=== PATIENT | male | born 1930 | race Caucasian/White ===

== ENCOUNTER 2017-09-16 10:28 | Observation (INO) | payer MEDICARE ==
[2017-09-16 10:58] LABS: ABS Basophils 0.1 10^3/ul (0-0.2); ABS Eosinophils 0.3 10^3/ul (0-0.6); ABS Lymphocytes 1.7 10^3/ul (1.0-4.8); ABS Monocytes 0.8 10^3/ul (0-0.8); ABS Neutrophils 5.1 10^3/ul (1.5-7.7); ABS Nucleated RBC 0 10^3/ul; Eosinophil % 3.6 % (0-6); Hematocrit 38 % (42-52); Hemoglobin 13.2 g/dl (14.0-18.0); Mean Corpuscular HGB Conc 35 g/dl (31-36); Mean Corpuscular Hemoglobin 33 pg (27-31); Mean Corpuscular Volume 95 fL (80-94); Mean Platelet Volume 6.2 um3 (7.4-10.4); Nucleated Red Blood Cells % 0; Platelet Count 348 10^3/ul (150-450); Red Blood Count 4.02 10^6/ul (4.00-5.40); Red Cell Distribution Width 13 % (10.5-15); White Blood Count 7.9 10^3/ul (3.5-10.8)
[2017-09-16 11:07] LABS: INR 0.89 (0.77-1.02)
--- NOTE | 2017-09-16 11:17 | ED ---
GI/ HPI - HPI Summary HPI Summary: This is scribe Filippo Oleary documenting for attending Hollie Emerson MD. 86 y/o male presents to ED accompanied by his daughter, Mariana, c/o black stool and generalized weakness for the past 3-5 days. In the ED room, the patient has a heart rate of 63 BPM, O2 saturation of 95% and blood pressure of 122/59. As per triage, "pt states hes had black stools for the past 5 days now. Has had hx of this". According to the patient, he has been experiencing these symptoms for the past 4-5 days, since September. He experiences black stools 3-4 times per day, however, he did note that he sees no blood in the toilet water. Additionally, he experiences a (non-acute) burning sensation that he has never experiences before outside of his arm and especially his forearm. Pt denies any CP, SOB, abdominal pain, headache or dizziness, however, he does have issues with loss of balance. The issues with loss of balance is chronic and not acute. He noted that he doesn't take Iron regularly. Instead he takes it "once in a blue lilly", such as eating chicken liver, however not in the last several days. Pt did had LUQ and LLQ pain intermittently that has resolved. He further noted that his 70% vision is not 100%. "There is a lot of interference" . PMHx of GI bleed x2 (2-3 years ago) and Cholecystectomy, no NH. 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 Current medications include daily small Aspirin (only "blood thinner"), Metoprolol, Levothyroxine and a whole array of Vitamin B tablets that he is trying on his own for his anemia. Patient was on Plavix previously. Last meal was approximately 0800. PCP in [place], [place], Dr Bennett. I, Dr. Hollie Emerson, personally performed the services described in this documentation as scribed in my presence and it is both accurate and complete. - History of Current Complaint Chief Complaint: EDGIBleed Time Seen by Provider: 09/16/17 10:37 Stated Complaint: BLOOD IN STOOL Hx Obtained From: Patient, Family/Track Worker - Daughter, Mariana. Onset/Duration: Started Days Ago - 4-5 days., Still Present Timing: Intermittent - Black stool 3-4 times per day., Lasting Days Severity: Moderate Current Severity: Moderate Pain Intensity: 3 Location of Pain: LUQ Pain Characteristics: Cramping, Other: - Black stool. Associated Signs and Symptoms: Positive: Black Tarry Stool, Diarrhea, Abdominal Pain. 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 Denies: Hx Pacemaker/ICD GI History: Reports: Hx Diverticulosis - diverticulitis and diverticular bleed, Hx Gastrointestinal Bleed, Hx Ulcer - duodenal History: Denies: Hx Dialysis, Hx Renal Disease Sensory History: Reports: Hx Contacts or Glasses, Hx Macular Degeneration, Hx Vision Problem - missing 1/3 of vision in right eye s/p CVA, s/p enucleation L, glaucoma Denies: Hx Deafness, Hx Hearing Aid, Hx Hearing Problem Opthamlomology History: Reports: Hx Contacts or Glasses, Hx Macular Degeneration , Hx Vision Problem - missing 1/3 of vision in right eye s/p CVA, enuculeation L ,glaucoma Neurological History: Reports: Hx CVA - affecting right eye Psychiatric History: Denies: Hx Panic Disorder - Surgical History Surgery Procedure, Year, and Place: CARDIAC STENT- 2003 NO CARDS- 1.5 T ONLY. GALLBLADDER. SX ON TOENAILS WHEN 19 YEARS OLD Hx Anesthesia Reactions: No Infectious Disease History: No Infectious Disease History: Denies: Traveled Outside the [place] in Last 30 Days - Family History Known Family History: Positive: Cardiac Disease - mother with NH, Other - Father with CVA Negative: Blood Disorder - Social History Lives: Alone Alcohol Use: None Hx Substance Use: No Substance Use Type: Reports: None Hx Tobacco Use: No Smoking Status (MU): Never Smoked Tobacco Review of Systems Negative: Fever Negative: Chest Pain Negative: Shortness Of Breath Positive: Abdominal Pain, Other - POSITIVE: Black stool. Positive: Other - POSITIVE: Non-acute burning sensation in arms/forearm. Skin: Negative Neurological: Other - NEGATIVE: Dizziness; POSITIVE: chronic loss of balance. Positive: Weakness - Generalized.. Negative: Headache Psychological: Normal All Other Systems Reviewed And Are Negative: Yes Physical Exam - Summary Physical Exam Summary: Appearance: Well-appearing, no pain distress, well-nourished Skin:Warm, color reflects adequate perfusion, dry Head:Normal Head/Face inspection, atraumatic Eyes: Conjunctiva clear right eye, enucleated left eye ENT:Normal inspection Neck:Supple, no nodes, no JVD Respiratory: Lungs clear, normal breath sounds, no respiratory distress Cardio: RRR, No murmur, pulses normal, brisk capillary refill Abdomen: Soft, nontender, no masses, no guarding, no rebound. Bowel sounds: Present. Rectal exam with Sugey, prostate was enlarged, no masses , external exam normal, soft green stool, guaiac negative. Musculoskeletal: Strength Intact/ROM intact, no calf tenderness, no edema. Psychological: Normal Neuro: Alert, muscle tone normal, no focal deficit Triage Information Reviewed: Yes Vital Signs On Initial Exam: Initial Vitals Temp Pulse Resp BP Pulse Ox 97.5 F 61 16 123/60 97 09/16/17 10:31 09/16/17 10:31 09/16/17 10:31 09/16/17 10:31 09/16/17 10:31 Vital Signs Reviewed: Yes Diagnostics - Vital Signs Vital Signs Temp Pulse Resp BP Pulse Ox 09/16/17 11:15 66 134/56 09/16/17 11:10 59 17 110/56 95 09/16/17 11:03 65 21 134/56 96 09/16/17 11:01 60 14 95 09/16/17 10:40 63 18 122/59 95 09/16/17 10:39 71 97 09/16/17 10:31 97.5 F 61 16 123/60 97 - Laboratory Lab Results: Lab Results 09/16/17 09/16/17 09/16/17 Range/Units 10:46 10:46 10:46 WBC 7.9 (3.5-10.8) 10^3/ul RBC 4.02 (4.00-5.40) 10^6/ul Hgb 13.2 L (14.0-18.0) g/dl Hct 38 L (42-52) % MCV 95 H (80-94) fL MCH 33 H (27-31) pg MCHC 35 (31-36) g/dl RDW 13 (10.5-15) % Plt Count 348 (150-450) 10^3/ul MPV 6.2 L (7.4-10.4) um3 Neut % (Auto) 64.4 (38-83) % Lymph % (Auto) 21.0 L (25-47) % [place] % (Auto) 10.2 H (0-7) % Eos % (Auto) 3.6 (0-6) % Baso % (Auto) 0.8 (0-2) % Absolute Neuts (auto) 5.1 (1.5-7.7) 10^3/ul Absolute Lymphs (auto) 1.7 (1.0-4.8) 10^3/ul Absolute Monos (auto) 0.8 (0-0.8) 10^3/ul Absolute Eos (auto) 0.3 (0-0.6) 10^3/ul Absolute Basos (auto) 0.1 (0-0.2) 10^3/ul Absolute Nucleated RBC 0 10^3/ul Nucleated RBC % 0 INR (Anticoag Therapy) 0.89 (0.77-1.02) APTT 30.2 (26.0-36.3) seconds Blood Type A Positive Antibody Screen Pending Result Diagrams: 09/17/17 06:43 09/17/17 06:43 Lab Statement: Any lab studies that have been ordered have been reviewed, and results considered in the medical decision making process. - Radiology CXR Radiology Interpretation Completed By: Radiologist - NO ACTIVE CARDIOPULMONARY DISEASE IS NOTED. ED physician reviewed this radiology report. - EKG 1042 Cardiac Rate: NL - 60 BPM EKG Rhythm: Sinus Rhythm EKG Interpretation: nl MANI CT. QTc 404. nl axis. no acute changes. EKG Comparison: No Significant Change - Since 10/18/2015. 1158 Cardiac Rate: Bradycardia - 56 BPM EKG Rhythm: Sinus Bradycardia EKG Interpretation: nl MANI CT, nl QTc, nl axis. Re-Evaluation - Re-Evaluation First Eval Re-Evaluation Time: 11:50 Change: Worse Comment: Nursing staff informed MD that patient is having CP. Second Eval Re-Evaluation Time: 11:56 Change: Worse Comment: Dr. Fink will evaluate patient. In the ED room, the patient noted that it was not chest pain, patient thinks it was more of a muscular cramp due to his position on the bed on the left side of chest under ribs reaching 2-3/10 in severity. Currently, the chest "cramp" has been relieved due to his position change. Denies any history of CP. In the ED room, the patient has a rate of 59 BPM, O2 saturation of 99% and blood pressure of 126/57. Another EKG will be done. Third Eval Re-Evaluation Time: 12:15 Change: Improved Comment: Ben Iraheta NP is present in room for evaluation. Daughter stated his left shoulder is cold and he is a minimizer in reporting symptoms. In the ED room, the patient as a rate of 59 BPM, O2 saturation of 98% and blood pressure of 126/63. GIGU Course/Dx - Course Course Of Treatment: A 86 y/o male with hx GI bleed x 2 in past due to diverticulitis and duodenal ulcer presents to ED accompanied by his daughter, Mariana, c/o black stool. Additionally c/o generalized weakness. In the ED, pt also had CP. Pt is on ASA, was on plavix when he had prior GI Bleeds. Stool is guaiac neg in the ED, and Hb is stable. Pt is not tachycardic, but is on metoprolol. Pt has had intermittent LUQ, LLQ pain. A CXR revealed no active cardiopulmonary disease is noted. A EKG revealed a NSR of 60 BPM, nl MANI CT. QTc 404. nl axis. no acute changes. A second EKG done for chest pain in the ED revealed sinus bradycardia of 56 BPM, nl MANI CT, nl QTc, nl axis. First troponin was negative. In ED course, the patient received IV fluids. Pt medications reviewed this visit. Patient care was discussed with MARIO Jackson [employer] consultant, and pt is from their practice who advises observation admission. Hospitalist, Dr. Fink, accepts patient for admission. Dr. Smith will have Dr. Jang evaluate patient in the hospital if needed. Patient will be admitted with a diagnosis of History of GI bleed, chest pain and generalized weakness. Patient is agreeable with this plan. - Diagnoses Differential Diagnoses - Male: ACS, Diverticulitis, Colitis, Diarrhea, Enterocolitis, Esophagitis/Gastritis, Gastritis, Gastroenteritis (Bacterial), Gastroenteritis (Viral), Ischemic Bowel, Peptic Ulcer Disease Provider Diagnoses: History of GI bleed, Generalized weakness, Chest pain, Dark stools - Physician Notifications Discussed Care Of Patient With: Sukhdev Smith Time Discussed With Above Provider: 11:27 Instructed by Provider To: Admit As Observation - advises patient admission for observation. Dr. Smith will have Dr. Jang evaluate patient in the hospital if needed. Dr. Fink, hospitalist accepts pt. Discharge - Sign-Out/Discharge Documenting (check all that apply): Patient Departure - admit - Discharge Plan Condition: Stable Disposition: ADMITTED TO [facility] - Billing Disposition and Condition Condition: STABLE Disposition: Admitted to [facility]
--- NOTE | 2017-09-16 11:30 | RAD ---
Indication: GI bleed. Single frontal view of the chest performed at 1113 hours was reviewed. Comparison is made with previous exam dated April 22, 2015. Hyperinflated lung tiwari are noted. Calcified nodule is noted in the right base which is unchanged from April 22, 2015 this is likely a calcified right rib end. IMPRESSION: NO ACTIVE CARDIOPULMONARY DISEASE IS NOTED.
[2017-09-16] MEDS ORDERED: NS 0.9% 1000 ML* 1,000 ML IV SCH ×2 (12:00→12:45)
[2017-09-16] MEDS ORDERED: Ondansetron INJ* 2 MG/ML VIAL IV PRN (12:44)
[2017-09-16] MEDS ORDERED: Acetaminophen TAB* 325 MG PO PRN (12:44)
[2017-09-16] MEDS ORDERED: Iohexol 300* (CONTRAST) 10 ML SDV IV ONE (14:16)
--- NOTE | 2017-09-16 14:54 | HP ---
CC: Dr. Bennett * HISTORY AND PHYSICAL: DATE OF ADMISSION: 09/16/17 PRIMARY CARE PROVIDER: Dr. Bennett. ATTENDING PHYSICIAN WHILE IN THE HOSPITAL: Dr. Lashonda Fink * (report dictated by Ben Iraheta NP). CHIEF COMPLAINT: 1. Diarrhea. 2. Weakness. 3. Tarry stool. HISTORY OF PRESENT ILLNESS: Mr. Lima is an 86-year-old male patient, who is coming into the ED today. In the last few days, he has had episodes, 3 to 4 times a day, of liquid diarrhea. He does note that he was taking Pepto-Bismol to help him. He actually took a dose yesterday and when he woke up this morning , he had diarrhea again and he noticed that his stool is dark. He says it did not look like tar, he just noted that the stool is black in appearance. He says he has just been feeling weak. The daughter does state that she normally goes over and checks his refrigerator for food at least once a week, she forgot to do it the last couple of weeks and says that he may have taken some spoiled food. There have been no recent sick contacts that they are aware of. He denies having any chest pain. In fact, he is admitting to having some right upper quadrant pain and right-sided abdominal cramping associated with his diarrhea. He has not noticed any nacho blood or maroon stools. He was concerned because he does have a significant history of diverticular bleeds in the past along with a duodenal ulcer, hypertension, glaucoma, hyperlipidemia, macular degeneration, hypothyroidism, history of stroke, and CAD. He came into the ED today. There was concern for a possible GI bleed. He was heme- negative. His H and H was stable and we were asked to evaluate for admission. PAST MEDICAL HISTORY: Significant for: 1. CAD. 2. Duodenal ulcer. 3. Diverticular bleed. 4. Hypertension. 5. Glaucoma. 6. Hyperlipidemia. 7. History of CVA. 8. Macular degeneration. PAST SURGICAL HISTORY: He has had: 1. A heart catheterization. 2. Hernia repair. 3. Laparoscopic cholecystectomy. 4. Carpal tunnel. HOME MEDICATIONS: Include: 1. Metoprolol 50 mg p.o. daily. He is actually taking half of this now. He was supposed to be on 50, but he cut back to half. 2. Synthroid 100 mcg daily. 3. Aspirin 81 mg daily. 4. PreserVision 1 tablet daily. 5. B12 one tablet daily. ALLERGIES TO MEDICATIONS: No known drug allergies. FAMILY HISTORY: Mother had a history of [place]. Father had a history of CVA. SOCIAL HISTORY: The patient does not smoke. He does not drink. Surrogate decision maker is his daughter, Jagruti. REVIEW OF SYSTEMS: There is no documented fever. He denies having any significant weight change. There was no ear discharge. He denies having any rhinorrhea. There was no sore throat. There is no thyroid enlargement. He is denying having any chest pain. There was no orthopnea. There was no nocturnal dyspnea. He does admit to abdominal pain per my HPI. He denied any nausea or vomiting. He does admit to having diarrhea per my HPI. There is no dysuria, no frequency. There was no seizure, no loss of consciousness. No pruritus and no skin ulcerations. Review of 14 systems was completed, all others negative. PHYSICAL EXAMINATION GENERAL: At this time, Mr. Lima is an 86-year-old male patient. He is sitting in the ER stretcher. He does not appear to be in any acute distress. VITAL SIGNS: Blood pressure 127/57, pulse 56, respirations were 18, O2 sat 96% , temperature 97.5. HEENT: Head: Atraumatic and normocephalic. Eyes: EOMs are intact. Sclerae anicteric and not pale. Throat: Oral mucosa appears to be moist. No oropharyngeal erythema. NECK: Supple. LUNGS: Clear to auscultation bilaterally. There were no wheezes, rales, or rhonchi. HEART: Sounds S1, S2. He had a regular rate and rhythm. No murmurs, rubs, or gallops. ABDOMEN: Soft. It was flat. There was tenderness in the left upper quadrant. Bowel sounds were present. EXTREMITIES: Pulses were 2+ throughout. He had no peripheral edema. NEUROLOGICAL: He is awake. He is alert. He is oriented x3. Speech is clear. He had no gross focal deficits. SKIN: Intact. DIAGNOSTIC STUDIES/LAB DATA: Labs today reveal WBC of 7.9, RBC of 4.02, hemoglobin of 13.2 that is right at his baseline, hematocrit of 38, and his platelet count is 348. His INR was 0.89, PTT of 30.2. Sodium of 130, potassium of 4.6, chloride of 95, bicarb 29, BUN 15, creatinine of 0.93, glucose 79, calcium 9.7. Total bili 0.7, AST 23, ALT 12, alk phos 79. Ammonia 43, albumin of 4.0. The patient had a chest x-ray obtained today, which showed no active cardiopulmonary disease. He did have an EKG obtained today, which shows a sinus bradycardia with a heart rate of 56. No ST elevation. He had J-point elevation in V2, V3. If you look back to EKG from 2016, that J point elevation is present there. Old medical records were reviewed. ASSESSMENT AND PLAN: Mr. Lima is an 86-year-old male patient coming into the ED today with complaints of black stools in the setting of Pepto-Bismol and also having diarrhea for the last 3 to 4 days. He will be admitted under observation status for: 1. Diarrhea. Again, I do not suspect that the patient is having a GI bleed. He was heme-negative here in the ED. His BUN is not elevated, but this has been going on for the last 3 to 4 days. He has been taking Pepto-Bismol intermittently. He took some last night before bed to help with the diarrhea. He certainly could have a foodborne illness given the fact that he may have been eating spoiled foods. He is tender though in the left upper quadrant. He does have a history of diverticulosis and diverticular bleed, so I am going to get a CT of the abdomen and pelvis, send the stool off for cultures and studies , hydrate him, and continue to monitor him and continue with supportive care for the time being. I will check serial H and Hs. He will have 2 IVs. If the H and H drops or if there are anymore concerns of bleeding, I will get [facility] involved, but I do not think we need them just at this point and we will continue to follow. 2. Coronary artery disease. Continue his aspirin and beta-kevon. 3. History of duodenal ulcer. Follow up with PCP. 4. Diverticular bleed. I do not believe it is an active issue. 5. Hypertension. Continue the metoprolol at 25 mg. 6. Glaucoma and macular degeneration. Follow up with his PCP. 7. Hyperlipidemia. Continue lifestyle modifications. 8. History of cerebrovascular accident. Continue with secondary prevention. 9. Code status: Full code. 10. Fluids, electrolytes, and nutrition: He is n.p.o. pending CT. After that , he can have a heart-healthy diet. 11. DVT prophylaxis: He will be placed on SCDs. TIME SPENT: Time spent on admission was 60 minutes, greater than half the time was spent [id number] with the patient obtaining my history and physical, other half of the time was spent going over the plan of care with the patient and implementing the plan of care. I did discuss the plan of care with Dr. Fink, she is in agreement. BEN IRAHETA, PEREZ [id number]/CPS #: [id number]
[2017-09-16 15:38] LABS: Urine Appearance Clear; Urine Blood Negative (Negative); Urine Color Yellow; Urine Ketones 1+ (Negative); Urine Protein Negative (Negative); Urine Specific Gravity 1.011 (1.010-1.030); Urine Urobilinogen Negative (Negative)
--- NOTE | 2017-09-16 15:47 | RAD ---
INDICATION: LEFT lower quadrant abdominal pain. History of diverticulitis. Post cholecystectomy. COMPARISON: May 01, 2015 CT. TECHNIQUE: Multidetector CT images were obtained from the lung bases to the ischial tuberosities with 95 mL Omnipaque 300 IV and oral contrast. Multiplanar reformation. REPORT: VISUALIZED INFERIOR THORAX: Annular calcifications at the mitral valve noted. Negative for cardiomegaly. Clear lung bases. LIVER / GALLBLADDER / PANCREAS / SPLEEN: Previous cholecystectomy likely accounts for unchanged minimal prominence of the central intrahepatic bile ducts. Normal diameter common bile duct. Negative for focal liver lesions. Unremarkable pancreas and spleen. ALIMENTARY TRACT: Negative for CT abnormality of the upper GI, small bowel, or appendix. Severe diverticulosis of the colon primarily involving the descending and sigmoid segments. At the sigmoid colon there is long segment mild bowel wall thickening most consistent with sequela of long-standing diverticulosis with myochosis. Negative for compelling perienteric inflammatory change to favor acute diverticulitis. Enteric contrast extends to the rectum. Negative for ascites, free air, or significant hernias. MESENTERIC: Unremarkable. ADRENAL / GENITOURINARY: Normal adrenal glands. Simple LEFT larger than RIGHT renal cysts. Negative for suspicious focal renal lesions. Negative for suspicious focal renal lesions. Normal variant LEFT extrarenal pelvis. Negative for obstructive uropathy. Unremarkable nondilated ureters. Partially distended urinary bladder is deviated to the RIGHT due to contrast distention of the sigmoid colon. The urinary bladder wall measures up to 0.6 cm. No focal lesion of the urinary bladder evident. Symmetric seminal vesicles. Mildly enlarged prostate. RETROPERITONEAL: Negative for lymphadenopathy. VASCULAR: Mild atherosclerotic plaque of normal diameter abdominal aorta and iliac arteries. BONES: Negative for suspicious osseous lesions. SOFT TISSUE: Unremarkable. IMPRESSION: #. Severe diverticulosis of the colon with probable chronic mild long segment mural thickening of the sigmoid colon secondary to diverticulosis. No compelling evidence for acute diverticulitis. #. Normal appendix documented. #. Negative for obstructive uropathy. #. Mild nonfocal thickening of the urinary bladder wall likely reflecting trabeculation given prostatomegaly. Correlate with urinalysis to exclude cystitis.
[2017-09-16] MEDS: amLODIPine TAB* 5 MG PO SCH (15:56)
[2017-09-16 17:20] LABS: Hematocrit 37 % (42-52); Hemoglobin 12.6 g/dl (14.0-18.0)
[2017-09-16 23:56] LABS: Hematocrit 39 % (42-52); Hemoglobin 13.1 g/dl (14.0-18.0)
[2017-09-17] MEDS ORDERED: Levothyroxine TAB* 100 MCG TAB PO SCH (06:00)
[2017-09-17 06:52] LABS: Hematocrit 38 % (42-52); Hemoglobin 12.8 g/dl (14.0-18.0)
[2017-09-17 06:54] LABS: ABS Basophils 0 10^3/ul (0-0.2); ABS Eosinophils 0.3 10^3/ul (0-0.6); ABS Lymphocytes 1.4 10^3/ul (1.0-4.8); ABS Monocytes 0.7 10^3/ul (0-0.8); ABS Neutrophils 4.8 10^3/ul (1.5-7.7); ABS Nucleated RBC 0 10^3/ul; Eosinophil % 4.6 % (0-6); Hematocrit 37 % (42-52); Hemoglobin 12.8 g/dl (14.0-18.0); Lymphocyte % 19.3 % (25-47); Mean Corpuscular HGB Conc 35 g/dl (31-36); Mean Corpuscular Hemoglobin 33 pg (27-31); Mean Corpuscular Volume 95 fL (80-94); Mean Platelet Volume 6.2 um3 (7.4-10.4); Nucleated Red Blood Cells % 0; Platelet Count 313 10^3/ul (150-450); Red Blood Count 3.86 10^6/ul (4.00-5.40); Red Cell Distribution Width 13 % (10.5-15); White Blood Count 7.4 10^3/ul (3.5-10.8)
[2017-09-17 07:10] LABS: EGFR Non-African American 95.8 (>60)
[2017-09-17 07:29] LABS: INR 0.9 (0.77-1.02)
[2017-09-17] MEDS ORDERED: Loperamide CAP* 2 MG PO PRN (08:54)
[2017-09-17] MEDS ORDERED: Metoprolol Succinate XL TAB* 25 MG PO SCH (09:00)
[2017-09-17] MEDS ORDERED: Aspirin EC TAB* 81 MG TAB.EC PO SCH (09:00)
[2017-09-17] MEDS ORDERED: NS 0.9% 1000 ML* 1,000 ML IV SCH (09:30)
[2017-09-17] MEDS: amLODIPine TAB* 5 MG PO SCH (10:21)
[2017-09-17 11:33] VITALS: BP 123/49
--- NOTE | 2017-09-18 16:52 | DS ---
CC: Dr. Carlos Bennett * DISCHARGE SUMMARY: DATE OF ADMISSION: 09/16/17 DATE OF DISCHARGE: 09/17/17 PRIMARY CARE PROVIDER: Dr. Carlos Bennett. MY ATTENDING WHILE IN THE HOSPITAL: Dr. Philip Robles.* (DICTATED BY KHUSHBOO NGUYEN) PRIMARY DISCHARGE DIAGNOSES: Diarrhea, gastroenteritis. SECONDARY DISCHARGE DIAGNOSES: Coronary artery disease, history of duodenal ulcer, history of diverticular bleeding, hypertension, glaucoma, hyperlipidemia , history of CVA, macular degeneration. STUDIES DONE WHILE IN THE HOSPITAL: A chest x-ray from 09/16/17, read as no active cardiopulmonary disease is noted. Abdomen and pelvis CT from 09/16/17, read as severe diverticulosis of the colon with probable chronic longstanding mural thickening of the sigmoid colon secondary to diverticulosis. No compelling evidence for acute diverticulitis. Normal appendix. Negative for obstructive uropathy. Mild nonfocal thickening of the urinary bladder wall likely reflecting trabeculation given the prostatomegaly. Correlate with urinalysis to exclude cystitis. MEDICATIONS AT DISCHARGE: 1. Levothyroxine 100 mcg p.o. daily. 2. Tylenol 650 mg p.o. q.4 hours as needed. 3. Aspirin 81 mg p.o. daily. 4. Loperamide 2 mg with each loose bowel movement as needed. 5. Metoprolol succinate 25 mg p.o. daily. HOSPITAL COURSE: This is a brief summary of the patient's presentation. For more details, please see history and physical from Ben Iraheta NP, on . In brief, the patient is an 86-year-old male with past medical history significant for the above, who presented to the emergency department for several days of 3 to 4 episodes a day of liquid diarrhea without abdominal pain or nausea. The patient took Pepto-Bismol a day before presentation and when he woke up, his stool was black and tarry in appearance. The patient's daughter states that she normally checks his refrigerator for food, but had not done so for several weeks. The patient does not remember cleaning out his fridge , but does not remember eating any spoiled food. The patient has no recent sick contacts. The patient had some abdominal cramping before, but did not have any at the time of presentation. The patient has no nacho blood or maroon stools. The patient's Hemoccult was negative. The patient was admitted to the hospital. The patient had no significant black or tarry abnormalities. The patient's hemoglobin remained stable around 13.2. The patient had 2 negative troponins. The patient's kidney function was not decreased. The patient's diarrhea decreased while he was in the hospital. The patient had negative stool studies including negative Shiga toxin, negative C. diff, negative Rotavirus, however, the patient did have followup with fecal lactoferrin. The patient felt much improved. The patient had no temperatures, no hypertension, no tachycardia while in the hospital. The patient was anxious for discharge on 09/17/17, and was stable. PHYSICAL EXAM ON THE DAY OF DISCHARGE: General: The patient is an 86-year-old male, who appears stated age, sitting comfortably in bed, in no acute distress. Vital Signs: At the time of evaluation, temperature 97.7, pulse rate 69, respiratory rate 16, oxygen saturation 100% on room air, blood pressure 123/49. HEENT: Head, normocephalic, atraumatic. Sclerae anicteric. No conjunctival injection. Nasal mucosa moist. Oral mucosa moist. No pharyngeal erythema, discharge, or exudate. Neck: Supple, nontender. No lymphadenopathy. No carotid bruits auscultated. No JVD. Cardiac: Regular rate and rhythm. No clicks, murmurs, gallops, or rubs. Pulses 2+ in the bilateral dorsalis pedis, posterior tibialis, and radial areas. Respiratory: Clear to auscultation bilaterally. No wheezes, rales, or rhonchi. Good air exchange bilaterally. Abdomen: Soft, nontender, nondistended. Bowel sounds present. Normoactive in all 4 quadrants. No hepatosplenomegaly. No abdominal bruits auscultated. No hepatojugular reflux. Genitourinary: No suprapubic or CVA tenderness. Skin: Clean, dry, and intact. No rash. Neuro: Cranial nerves II through XII intact. No focal deficits. Alert and oriented x3. Psychiatric: Pleasant and cooperative. LABORATORY DATA ON THE DAY OF DISCHARGE: White blood cell count 7.4, hemoglobin 12.8, hematocrit 37, platelet count 313. INR 0.9. Sodium 130, potassium 4.3, chloride 97, carbon dioxide 28, anion gap 5, BUN 12, creatinine 0.77, glucose 84, calcium 9.3. DISCHARGE PLAN: The patient will be discharged to home. The patient is not having any nausea. The patient has been encouraged to drink plenty of fluids, particularly fluids with electrolytes and advance diet as tolerated. The patient should be vigilant with his bowel movements for continued tarry stools, or nacho red blood. The patient can take loperamide as above 16 g daily; however, he has been advised to use caution with this; however, the patient is only having 3 to 4 bowel movements daily and likely will not be taking this dose. The patient should follow up with his primary care provider within 1 week for general medical management and ensure improvement in his symptoms. The patient should return to the hospital for alarming symptoms such as chest pain, severe shortness of breath, severe abdominal pain, blood in his stool, or other alarming symptoms. The patient should continue activities as tolerated. TIME SPENT: Approximately 45 minutes were spent on the discharge of this patient, 20 of which were spent [id number] with the patient obtaining history and physical and discussing treatment plan. KHUSHBOO NGUYEN [id number]/[facility] #: [id number] [place]
== END 2017-09-17 13:40 | disposition home or self-care (01) ==
LOC: ED 10:28 → MED 12:42
PROVIDERS: ADMIT Hospitalist; ATTEND Hospitalist
DX: R19.7 Diarrhea, unspecified (principal); R53.1 Weakness; R10.9 Unspecified abdominal pain; K52.9 Noninfective gastroenteritis and colitis, unspecified; I25.10 Atherosclerotic heart disease of native coronary artery without angina pectoris; Z79.82 Long term (current) use of aspirin; Z87.11 Personal history of peptic ulcer disease; Z86.73 Personal history of transient ischemic attack (TIA), and cerebral infarction without residual deficits; I10 Essential (primary) hypertension; H40.9 Unspecified glaucoma; H35.30 Unspecified macular degeneration
CPT/HCPCS: 36415; 71045; 74177; 80048; 80053; 81003; 82140; 82272; 83630; 84484; 85014; 85018; 85025; 85610; 85730; 86850; 86900; 86901; 87045; 87046; 87077; 87425; 87493; 87899; 93005; 99284; A9270-GY; G0378; Q9967

== ENCOUNTER 2020-10-25 18:13 | Inpatient (IN) ==
[2020-10-25] MEDS ORDERED: NS 0.9% 500 ml BAG 500 ML IV ONE (18:45)
[2020-10-25] MEDS ORDERED: Metoprolol Tartrate 5 mg VIAL 5 ml VIAL (1 mg/ml) IV ONE ×2 (19:09→22:48)
[2020-10-25 19:15] LABS: ABS Basophils 0.1 10^3/ul (0-0.2); ABS Lymphocytes 1.1 10^3/ul (1.0-4.8); ABS Monocytes 0.9 10^3/ul (0-0.8); ABS Neutrophils 10.2 10^3/ul (1.5-7.7); Eosinophil % 0.2 %; Hematocrit 37 % (42-52); Hemoglobin 12.9 g/dL (14.0-18.0); Lymphocyte % 8.6 %; Mean Corpuscular HGB Conc 35 g/dL (31-36); Mean Corpuscular Hemoglobin 34 pg (27-31); Mean Corpuscular Volume 97 fL (80-94); Mean Platelet Volume 6.4 fL (7.4-10.4); Nucleated Red Blood Cells % 0.2; Platelet Count 452 10^3/uL (150-450); Red Blood Count 3.78 10^6 /uL (4.18-5.48); Red Cell Distribution Width 13 % (10-15); White Blood Count 12.2 10^3/uL (3.5-10.8)
[2020-10-25] MEDS ORDERED: NS 0.9% 1000 ml BAG 1,000 ML IV SCH (19:15)
[2020-10-25 19:21] LABS: INR 1.26 (0.86-1.15)
[2020-10-25 19:43] LABS: ALT 29 U/L (7-52); AST 57 U/L (13-39); Albumin 3.5 g/dL (3.2-5.2); Albumin/Globulin Ratio 0.8 (1-3); Alkaline Phosphatase 60 U/L (35-149); Anion Gap 10 mmol/L (2-11); Blood Urea Nitrogen 24 mg/dL (6-24); CO2 Carbon Dioxide 26 mmol/L (22-32); Calcium 9.1 mg/dL (8.6-10.3); Chloride 99 mmol/L (101-111); Creatine Kinase 917 U/L (10-223); EGFR African American 85.1 (>60); EGFR Non-African American 70.4 (>60); Globulin 4.3 g/dL (2-4); Glucose 104 mg/dL (70-100); Magnesium 1.9 mg/dL (1.9-2.7); Potassium 4.3 mmol/L (3.5-5.0); Sodium 135 mmol/L (135-145); Total Protein 7.8 g/dL (6.4-8.9)
[2020-10-25 21:10] LABS: Urine Appearance Cloudy; Urine Bilirubin Negative (Negative); Urine Blood 2+ (Negative); Urine Color Yellow; Urine Glucose Negative (Negative); Urine Ketones Trace (Negative); Urine Nitrite Negative (Negative); Urine Protein 2+(100 mg/dL) (Negative); Urine Specific Gravity 1.019 (1.002-1.030); Urine Urobilinogen Negative (Negative)
[2020-10-25 21:28] LABS: Urine Bacteria Absent (Absent); Urine Red Blood Cell Trace(0-2/hpf) (Absent); Urine Squamous Epithelial Cell Present (Absent); Urine White Blood Cell Trace(0-5/hpf) (Absent)
[2020-10-25] MEDS: Enoxaparin 40 MG/0.4 ML SYR SUBCUT SCH (21:37)
[2020-10-25 22:20] LABS: Rapid COVID-19 Molecular Undetected (Undetected)
[2020-10-25 22:53] LABS: Troponin I 0.17 ng/mL (<0.03)
[2020-10-25 23:16] LABS: TSH Ultra Thyroid Stim Horm 4.95 mcIU/mL (0.34-5.60)
[2020-10-26 00:15] LABS: Troponin I 0.17 ng/mL (<0.03)
[2020-10-26 01:38] LABS: Troponin I 0.16 ng/mL (<0.03)
[2020-10-26 06:01] LABS: ABS Basophils 0.1 10^3/ul (0-0.2); ABS Eosinophils 0.3 10^3/ul (0-0.6); ABS Lymphocytes 1.5 10^3/ul (1.0-4.8); ABS Monocytes 0.6 10^3/ul (0-0.8); ABS Neutrophils 8.3 10^3/ul (1.5-7.7); Eosinophil % 2.8 %; Hematocrit 35 % (42-52); Hemoglobin 11.7 g/dL (14.0-18.0); Lymphocyte % 14.2 %; Mean Corpuscular HGB Conc 34 g/dL (31-36); Mean Corpuscular Hemoglobin 33 pg (27-31); Mean Corpuscular Volume 97 fL (80-94); Mean Platelet Volume 6.4 fL (7.4-10.4); Platelet Count 404 10^3/uL (150-450); Red Blood Count 3.56 10^6 /uL (4.18-5.48); Red Cell Distribution Width 13 % (10-15); White Blood Count 10.8 10^3/uL (3.5-10.8)
[2020-10-26 06:24] LABS: Anion Gap 6 mmol/L (2-11); Blood Urea Nitrogen 20 mg/dL (6-24); CO2 Carbon Dioxide 28 mmol/L (22-32); Calcium 8.5 mg/dL (8.6-10.3); Chloride 101 mmol/L (101-111); Creatine Kinase 625 U/L (10-223); EGFR African American 102.7 (>60); EGFR Non-African American 84.9 (>60); Glucose 86 mg/dL (70-100); Potassium 3.8 mmol/L (3.5-5.0); Sodium 135 mmol/L (135-145)
[2020-10-26 06:28] LABS: Troponin I 0.14 ng/mL (<0.03)
[2020-10-26 09:07] LABS: Troponin I 0.12 ng/mL (<0.03)
[2020-10-26] MEDS ORDERED: Perflutren Lipid Microsphere 3 ML VIAL ONE (10:48)
[2020-10-26] MEDS: Enoxaparin 40 MG/0.4 ML SYR SUBCUT SCH (21:56)
[2020-10-26] MEDS ORDERED: Lidocaine PATCH 5% PATCH TRANSDERM ONE (23:17)
[2020-10-27 07:05] LABS: ABS Basophils 0.1 10^3/ul (0-0.2); ABS Eosinophils 0.9 10^3/ul (0-0.6); ABS Lymphocytes 1.4 10^3/ul (1.0-4.8); ABS Monocytes 0.7 10^3/ul (0-0.8); ABS Neutrophils 6.8 10^3/ul (1.5-7.7); Eosinophil % 9.3 %; Hematocrit 34 % (42-52); Hemoglobin 11.8 g/dL (14.0-18.0); Lymphocyte % 13.8 %; Mean Corpuscular HGB Conc 35 g/dL (31-36); Mean Corpuscular Hemoglobin 34 pg (27-31); Mean Corpuscular Volume 96 fL (80-94); Mean Platelet Volume 6.6 fL (7.4-10.4); Platelet Count 432 10^3/uL (150-450); Red Blood Count 3.52 10^6 /uL (4.18-5.48); Red Cell Distribution Width 13 % (10-15); White Blood Count 9.9 10^3/uL (3.5-10.8)
[2020-10-27 07:21] LABS: Calcium 8.4 mg/dL (8.6-10.3); EGFR African American 94.9 (>60); EGFR Non-African American 78.4 (>60); Magnesium 1.8 mg/dL (1.9-2.7); Potassium 3.9 mmol/L (3.5-5.0)
[2020-10-27 11:32] VITALS: BP 111/55
[2020-10-27] MEDS ORDERED: Lidocaine Patch REMOVE PATCH PATCH OFF ONE (12:00)
== END 2020-10-27 17:23 | disposition home or self-care (01) | DRG 309 ==
LOC: ED 18:13 → SUATTDRO 22:29 → MEDTELE 22:29
PROVIDERS: ADMIT Internal Medicine; ATTEND Internal Medicine

== ENCOUNTER 2020-10-27 19:37 | Inpatient (IN) ==
[2020-10-27] MEDS ORDERED: NS 0.9% 50 ML 50 ML IV ONE (20:22)
[2020-10-27] MEDS ORDERED: CASIRIVI/IMDEVI-MAB 600-600 MG 10 ML in NS 0.9% 100 ml BAG 100 ML IV ONE (21:00)
[2020-10-28] MEDS: Enoxaparin 30 MG/0.3 ML SYR SUBCUT SCH (19:30)
[2020-10-29 06:45] LABS: ABS Basophils 0.1 10^3/ul (0-0.2); ABS Eosinophils 0.9 10^3/ul (0-0.6); ABS Lymphocytes 1.4 10^3/ul (1.0-4.8); ABS Monocytes 0.7 10^3/ul (0-0.8); ABS Neutrophils 5.8 10^3/ul (1.5-7.7); Eosinophil % 10.7 %; Hematocrit 35 % (42-52); Hemoglobin 11.9 g/dL (14.0-18.0); Lymphocyte % 15.6 %; Mean Corpuscular HGB Conc 34 g/dL (31-36); Mean Corpuscular Hemoglobin 33 pg (27-31); Mean Corpuscular Volume 97 fL (80-94); Mean Platelet Volume 6.2 fL (7.4-10.4); Platelet Count 494 10^3/uL (150-450); Red Blood Count 3.61 10^6 /uL (4.18-5.48); Red Cell Distribution Width 14 % (10-15); White Blood Count 8.9 10^3/uL (3.5-10.8)
[2020-10-29 06:59] LABS: Albumin/Globulin Ratio 0.8 (1-3); Calcium 8.5 mg/dL (8.6-10.3); EGFR African American 98.7 (>60); EGFR Non-African American 81.5 (>60); Globulin 3.6 g/dL (2-4); Total Bilirubin 0.5 mg/dL (0.2-1.0); Total Protein 6.6 g/dL (6.4-8.9)
[2020-10-29] MEDS: Enoxaparin 30 MG/0.3 ML SYR SUBCUT SCH ×2 (08:30→20:57)
[2020-10-30] MEDS: Enoxaparin 30 MG/0.3 ML SYR SUBCUT SCH ×2 (09:13→21:18)
[2020-10-31] MEDS: Enoxaparin 30 MG/0.3 ML SYR SUBCUT SCH ×2 (07:47→20:05)
[2020-11-01 06:52] LABS: ABS Basophils 0.1 10^3/ul (0-0.2); ABS Eosinophils 0.8 10^3/ul (0-0.6); ABS Lymphocytes 1.3 10^3/ul (1.0-4.8); ABS Monocytes 0.7 10^3/ul (0-0.8); ABS Neutrophils 5.5 10^3/ul (1.5-7.7); Eosinophil % 9.8 %; Hematocrit 36 % (42-52); Hemoglobin 12.3 g/dL (14.0-18.0); Lymphocyte % 15.9 %; Mean Corpuscular HGB Conc 34 g/dL (31-36); Mean Corpuscular Hemoglobin 33 pg (27-31); Mean Corpuscular Volume 97 fL (80-94); Nucleated Red Blood Cells % 0.1; Platelet Count 519 10^3/uL (150-450); Red Blood Count 3.73 10^6 /uL (4.18-5.48); Red Cell Distribution Width 14 % (10-15); White Blood Count 8.5 10^3/uL (3.5-10.8)
[2020-11-01 07:08] LABS: Calcium 8.9 mg/dL (8.6-10.3); EGFR African American 96.1 (>60); EGFR Non-African American 79.5 (>60); Magnesium 1.8 mg/dL (1.9-2.7); Potassium 4.5 mmol/L (3.5-5.0)
[2020-11-01] MEDS: Enoxaparin 30 MG/0.3 ML SYR SUBCUT SCH (07:54)
[2020-11-01 10:18] VITALS: BP 142/61
== END 2020-11-01 11:40 | disposition home or self-care (01) | DRG 178 ==
LOC: ED 19:37 → SUATTDRO 10-28 14:08 → MED 10-28 14:08
PROVIDERS: ADMIT Internal Medicine; ATTEND Student in an Organized Health Care Education/Training Program